=== PATIENT | male | born 1965 | race Caucasian/White ===

== ENCOUNTER 2021-09-12 12:13 | Emergency (ER) | payer MEDICAID, OTHER ==
[2021-09-12 12:44] LABS: BASOPHILS # (AUTO) 0.1 10^3/uL (0.0-0.1); BASOPHILS % (AUTO) 1.1 %; EOSINOPHILS # (AUTO) 0.2 10^3/uL (0.0-0.7); EOSINOPHILS % (AUTO) 2.7 %; HCT - HEMATOCRIT 46.2 % (42.0-52.0); HGB - HEMOGLOBIN 15.4 g/dL (14.0-18.0); LYMPHOCYTES # (AUTO) 1.9 10^3/uL (1.5-3.5); LYMPHOCYTES % (AUTO) 24.3 %; MEAN CORPUSCULAR HEMOGLOBIN 31.8 pg (27.0-31.0); MEAN CORPUSCULAR HGB CONC 33.3 g/dL (32.0-36.0); MEAN CORPUSCULAR VOLUME 95.5 fL (80.0-94.0); MEAN PLATELET VOLUME 9.6 fL (7.4-11.4); MONOCYTES # (AUTO) 0.6 10^3/uL (0.0-1.0); MONOCYTES % (AUTO) 7.7 %; NEUTROPHILS % (AUTO) 63.7 %; PLT - PLATELET COUNT 225 10^3/uL (130-450); RED BLOOD COUNT 4.84 10^6/uL (4.70-6.10); RED CELL DISTRIBUTION WIDTH 12.9 % (12.0-15.0); WHITE BLOOD COUNT 7.9 x10^3/uL (4.8-10.8)
--- NOTE | 2021-09-12 12:50 | ED Physician Documentation ---
History of Present Illness - Stated complaint Stated Complaint: HIGH BLOOD PRESSURE - Chief complaint Chief Complaint: General - Additonal information Additional information: 55-year-old male presents emergency department for evaluation of elevated blood pressure. He states that over the last year he has casually checked his blood pressure when he would be in pharmacies or [employer] and the machine always told him that he had hypertension. As he his got his booster vaccine for Covid recently his girlfriend saw that his blood pressure was greater than 180 and advised him to get into the ER to get checked. The patient denies that he is having any chest pain, shortness of air or leg swelling. No nausea, vomiting or headaches. His typical blood pressure readings are in the 160s to 180s. Patient expresses [place]. Patient is a moderate tobacco user 4 to 7 cigarettes a day. Social drinker on the weekends only. Takes no other prescribed medications. Review of Systems Constitutional: reports: Reviewed and negative Ears: reports: Reviewed and negative Nose: reports: Reviewed and negative Throat: reports: Reviewed and negative Cardiac: reports: Reviewed and negative Respiratory: reports: Reviewed and negative GI: reports: Reviewed and negative : reports: Reviewed and negative Skin: reports: Reviewed and negative Musculoskeletal: reports: Reviewed and negative Neurologic: reports: Reviewed and negative PD PAST MEDICAL HISTORY - Present Medications Home Medications: Ambulatory Orders Medication Instructions Recorded Confirmed Lisinopril [Zestril] 10 mg PO DAILY #30 tablet 09/12/21 - Allergies Allergies/Adverse Reactions: Allergies Allergy/AdvReac Type Severity Reaction Status Date / Time No Known Drug Allergies Allergy Verified 09/12/21 12:28 - Social History Does the pt smoke?: Yes Smoking Status: Current every day smoker PD ED PE NORMAL - General General: Alert and oriented X 3, No acute distress, Well developed/nourished - HEENT HEENT: PERRL, Moist mucous membranes - Neck Neck: Supple, no meningeal sign, No adenopathy - Cardiac Cardiac: RRR, No murmur, Strong equal pulses - Respiratory Respiratory: No respiratory distress, Clear bilaterally - Abdomen Abdomen: Normal bowel sounds, Soft, Non tender - Back Back: No CVA TTP, No spinal TTP - Derm Derm: Normal color, Warm and dry, No rash - Extremities Extremities: No deformity, No tenderness to palpate, Normal ROM s pain - Neuro Neuro: Alert and oriented X 3, claims support specialist 2-12 intact Eye Opening: Spontaneous Motor: Obeys Commands Verbal: Oriented GCS Score: 15 Results - Vitals Vitals: Vital Signs - 24 hr 09/12/21 12:24 Temperature 36.4 C L Heart Rate 83 Respiratory 18 Rate Blood Pressure 185/110 H O2 Saturation 98 Oxygen O2 Source Room air - EKG (time done) 1239 Rate: Rate (enter#) (79) Rhythm: NSR Slinger: Anterior hemiblock Intervals: Normal NH, RBBB. No: Prolonged QT QRS: Poor R wave progression Ischemia: Non specific changes Compare to prior EKG: Old EKG unavailable Computer interpretation: Agree with computer - Labs Labs: Laboratory Tests 09/12/21 09/12/21 09/12/21 12:39 12:39 12:39 WBC 7.9 RBC 4.84 Hgb 15.4 Hct 46.2 MCV 95.5 H MCH 31.8 H MCHC 33.3 RDW 12.9 Plt Count 225 MPV 9.6 Neut # (Auto) 5.0 Lymph # (Auto) 1.9 [place] # (Auto) 0.6 Eos # (Auto) 0.2 Baso # (Auto) 0.1 Absolute Nucleated RBC 0.00 Nucleated RBC % 0.0 Sodium 135 Potassium 4.0 Chloride 101 Carbon Dioxide 27 Anion Gap 7.0 BUN 18 Creatinine 1.1 Estimated GFR (MDRD) 69 L Glucose 102 H Calcium 8.9 Total Bilirubin 0.5 AST 17 ALT 19 Alkaline Phosphatase 72 Troponin I High Sens 4.1 Total Protein 6.6 L Albumin 3.6 Globulin 3.0 Albumin/Globulin Ratio 1.2 Lipase 80 H - Rads (name of study) CXR Radiology: Final report received (Chest without acute cardiopulmonary abnormalities.) PD MEDICAL DECISION MAKING - ED course Complexity details: reviewed results, re-evaluated patient, considered differential, d/w patient ED course: 55-year-old male presents emergency department for evaluation and hopeful ma nagement of his elevated blood pressure. Over the last year he has noticed that his blood pressures are typically in the 1 60-1 80 range when checked at local pharmacies or walk-in clinics. He has never been treated for hypertension. He does not have any headache, chest pain or shortness of air. No leg swelling. His blood pressure was checked today at the [facility] where he was getting a booster shot and he was noted to have a systolic greater than 180 and his girlfriend requested that he come to the ER for evaluation. Patient's cardiopulmonary exam is unremarkable. Screening EKG is nonischemic though he does have a right bundle branch block. No previous for comparison. Screening labs show no acute worrisome abnormalities. Renal function is preserved. Negative troponin. Patient will be started on lisinopril. 10 mg daily. He is advised to establish with a primary care doctor in order to have his blood pressure managed in the long-term. Is also advised tobacco cessation. Emergent return precautions otherwise discussed. Departure - Departure Disposition: Home, Self Care Clinical Impression: Hypertension Qualifiers: Hypertension type: primary hypertension Qualified Code(s): I10 - Essential (primary) hypertension Condition: Stable Record reviewed to determine appropriate education?: Yes Instructions: High Blood Pressure, Inhibitors ALISHA Prescriptions: Lisinopril [Zestril] 10 mg PO DAILY #30 tablet Comments: Donnie berg are seen today in the emergency department for elevated blood pressure. Your screening labs and EKG did not show any worrisome findings. But it is important to start treatment for your high blood pressure. Fill the prescription for the lisinopril and begin taking once daily as directed. Your prescription was sent to [facility] in [place]. It is important that you establish with a primary care doctor to have longer-term evaluation and management of your blood pressure completed. Tobacco cessation will be an important part of achieving blood pressure goals. If at any point you develop sudden severe headache, have uncontrolled vomiting, develop sudden chest pain, chest pressure or have shortness of air then return immediately to the ER for second evaluation.
--- NOTE | 2021-09-12 13:12 | XRAY Report ---
PROCEDURE: Chest 1 View X-Ray INDICATIONS: Chest Pain TECHNIQUE: One view of the chest was acquired. COMPARISON: None FINDINGS: Surgical changes and devices: None. Lungs and pleura: No pleural effusions or pneumothorax. Lungs are clear. Mediastinum: Mediastinal contours appear normal. Heart size is normal. Bones and chest wall: No suspicious bony lesions. Overlying soft tissues appear unremarkable. IMPRESSION: CHEST WITHOUT ACUTE CARDIOPULMONARY ABNORMALITIES. Reviewed by: Tomer Arango MD on 09/12/2021 1:10 PM PST Approved by: Tomer Arango MD on 09/12/2021 1:10 PM [facility] Station ID: [id number]
[2021-09-12 13:13] LABS: ALBUMIN 3.6 g/dL (3.2-5.5); ALBUMIN/GLOBULIN RATIO 1.2 (1.0-2.2); BILIRUBIN,TOTAL 0.5 mg/dL (0.2-1.0); CALCIUM 8.9 mg/dL (8.5-10.3); CREATININE 1.1 mg/dL (0.6-1.2); TOTAL PROTEIN 6.6 g/dL (6.7-8.2)
[2021-09-12 14:12] VITALS: BP 161/105
== END 2021-09-12 14:15 | disposition home or self-care (01) ==
LOC: ED 12:13
DX: I10 Essential (primary) hypertension (principal); F17.200 Nicotine dependence, unspecified, uncomplicated
CPT/HCPCS: 36415; 80053; 83690; 84484; 85025; 93005; 99283; 99284

== ENCOUNTER 2021-09-30 09:52 | Emergency (ER) | payer MEDICAID ==
--- NOTE | 2021-09-30 10:06 | ED Physician Documentation ---
PD HPI URI - Stated complaint Stated Complaint: THROAT PX/COUGH - Chief complaint Chief Complaint: Heent - History obtained from History obtained from: Patient - History of Present Illness Timing - onset: Last night Timing duration: Hours (12) Timing details: Gradual onset, Still present Associated symptoms: Sore throat, Swollen nodes, Other (feeling painful swallowing with sensation of swelling in right throat.). No: Fever Contributing factors: Other (onset of discomfort in throat after putting in some insulation and drywall last evening. HE says the insulation sheets had been stored awhile, so had mouse scat on it.). No: Sick contact, Unimmunized Improves by: No: Rest Worsened by: Other (swallowing) Similar symptoms before: Has not had sx before Recently seen: Emergency Dept (a month ago for high blood pressure and RX LIsinopril for the past month.) Review of Systems Constitutional: reports: Fever, Chills, Myalgias Nose: denies: Rhinorrhea / runny nose, Congestion Throat: reports: Sore throat, Swollen tonsils (right side) Cardiac: denies: Chest pain / pressure Respiratory: denies: Dyspnea, Cough GI: denies: Abdominal Pain, Nausea, Vomiting Skin: denies: Rash, Lesions PD PAST MEDICAL HISTORY - Past Medical History Cardiovascular: Hypertension Respiratory: None Neuro: None Endocrine/Autoimmune: None - Present Medications Home Medications: Ambulatory Orders Medication Instructions Recorded Confirmed Lisinopril [Zestril] 10 mg PO DAILY #30 tablet 09/12/21 HYDROcod/ACETAM 5/325 [[place] 5/325] 1 ea PO Q6H PRN #18 tablet 09/30/21 Losartan [Cozaar] 50 mg PO DAILY 30 Days #30 tablet 09/30/21 cephALEXin [Keflex] 500 mg PO QID 5 Days #20 cap 09/30/21 dexAMETHasone [Decadron] 8 mg PO DAILY 5 Days #10 tablet 09/30/21 - Allergies Allergies/Adverse Reactions: Allergies Allergy/AdvReac Type Severity Reaction Status Date / Time No Known Drug Allergies Allergy Verified 09/30/21 10:02 - Living Situation Living Situation: reports: Alone Living Arrangement: reports: At home - Social History Does the pt smoke?: Yes Smoking Status: Current every day smoker Does the pt have substance abuse?: No PD ED PE NORMAL - Vitals Vital signs reviewed: Yes - General General: Well developed/nourished, Other (appears in pain with swallowing. SLIGht distortion/hoarsenss of voice with speaking. ) - HEENT HEENT: Moist mucous membranes. No: Pharynx benign (tonsilllar redness some both sides. Right tonsil with more swelling, redness and with peritonsillar swelling causing some deviation right tonsil toward midline. ) - Neck Neck: Supple, no meningeal sign, Other (right adenopathy. ) - Cardiac Cardiac: RRR, No murmur - Respiratory Respiratory: Clear bilaterally - Back Back: No CVA TTP - Derm Derm: Normal color, Warm and dry, No rash - Neuro Neuro: Alert and oriented X 3, No motor deficit, No sensory deficit. No: Normal speech (mild hoarseness. ) Results - Vitals Vitals: Vital Signs - 24 hr 09/30/21 09/30/21 09/30/21 09:59 10:38 13:30 Temperature 36.2 C L Heart Rate 102 H 99 92 Respiratory 22 18 16 Rate Blood Pressure 197/96 H 156/119 H O2 Saturation 99 95 Oxygen O2 Source Room air - Labs Labs: Laboratory Tests 09/30/21 09/30/21 09/30/21 10:33 10:33 10:33 WBC 19.1 H RBC 4.68 L Hgb 14.8 Hct 44.2 MCV 94.4 H MCH 31.6 H MCHC 33.5 RDW 12.9 Plt Count 221 MPV 9.6 Neut # (Auto) 17.0 H Lymph # (Auto) 0.7 L [place] # (Auto) 1.2 H Eos # (Auto) 0.0 Baso # (Auto) 0.1 Absolute Nucleated RBC 0.00 Nucleated RBC % 0.0 Sodium 132 L Potassium 3.8 Chloride 98 L Carbon Dioxide 25 Anion Gap 9.0 BUN 12 Creatinine 1.1 Estimated GFR (MDRD) 69 L Glucose 127 H Calcium 8.9 Total Bilirubin 1.0 AST 18 ALT 16 Alkaline Phosphatase 66 Total Protein 6.9 Albumin 3.9 Globulin 3.0 Albumin/Globulin Ratio 1.3 Lipase 31 Group A Strep Rapid Negative - Rads (name of study) neck CT Radiology: Prelim report reviewed, Discussed with rads (right peritonsillar edema and 1.2 cm abscess. thickened mucosal tissue lower throat concerning for tumor versus acute swelling. SUggests ENT FOllow up. ), See rad report PD MEDICAL DECISION MAKING - ED course Complexity details: re-evaluated patient (more comfortable with talking and swallowing. Oral exam appears less swelling already.), considered differential (does have abscess, but also brisk amount of edema with it, so consider some effect of new lisinopril and I opt to change that.), d/w patient, d/w community resource consultant (Dr. Junior, operations vice president for [facility] in [place], who will see patient in follow up this week if still with symptoms, or early next week if well improving. ) Departure - Departure Disposition: Home, Self Care Clinical Impression: Peritonsillar abscess Condition: Stable Record reviewed to determine appropriate education?: Yes Instructions: ED Peritonsillar Abscess Follow-Up: [facility] [place] [Provider Group] Prescriptions: Losartan [Cozaar] 50 mg PO DAILY 30 Days #30 tablet dexAMETHasone [Decadron] 8 mg PO DAILY 5 Days #10 tablet cephALEXin [Keflex] 500 mg PO QID 5 Days #20 cap HYDROcod/ACETAM 5/325 [[place] 5/325] 1 ea PO Q6H PRN #18 tablet PRN Reason: Pain Comments: You do have infection and a small abscess within the tissue in the back of the throat and around the tonsils. We will treat this with Decadron steroid for inflammation and swelling as well as cephalexin antibiotic. Both of these as prescribed for the next 5 days. The small fluid collection seen on CT scan is in a lower area harder to access and is small enough that it should not need draining necessarily at this point. I talked with an longwall shearer operator, Dr. Junior from [facility] in [place], and he felt treating with oral medications at this time would be adequate. Return to the ER if you feel increasing amount of swelling, pain or difficulty swallowing again despite the medications. They do want a follow-up and see you in the office later this week. Call the office number today and let them know you are seen in the ER and we talked with Dr. Junior for close follow-up of the peritonsillar abscess. You did have a unusually quick amount of swelling for this and so I wonder if there is some concurrent affect of tissue swelling that can associate with the blood pressure medicine you have just started. In conjunction with an infection, sometimes this tissue will swell more than it should have as a side effect of that medicine. As such I would suggest stopping your lisinopril blood pressure medicine and changing to one called losartan. Tylenol every 4-6 hours if needed for pain or hydrocodone if needed for worse pain. Liquids and soft food only for the next few days to have less irritation of the throat when swallowing. I transmitted your prescriptions to [facility] in [place]. I am prescribing a short course of narcotic pain medication for you. These are potentially dangerous and addictive medications that should be used carefully. These medications may constipate you. Take an mzbm-fod-wzeocrg stool softener such as docusate twice daily with plenty of water while taking these medications. If you go 24 hours without a bowel movement, take jngt-fax-[id number] MiraLAX, per package instructions. Do not drink or drive while taking these medications. If you received narcotic or sedating medications while in the emergency department do not drive for 24 hours. Store this medication in a safe, secure place and out of reach of children. It is a violation of federal law to give or sell this medication to another person or to use in a manner other than prescribed. The ED will not refill narcotic prescriptions, including prescriptions lost or stolen. You can dispose of unwanted medications at the [facility]'s office or at several pharmacies such as [facility]. Discharge Date/Time: 09/30/21 13:40
[2021-09-30] MEDS ORDERED: KETOROLAC 30 MG/ML VIAL IVP STA (10:16)
[2021-09-30] MEDS ORDERED: HYDROmorphone 0.5 MG/0.5 ML SYRINGE IVP STA (10:16)
[2021-09-30] MEDS ORDERED: SODIUM CHLORIDE INHALATION 3 ML NEB INH STA (10:16)
[2021-09-30] MEDS ORDERED: RACEPINEPHRINE 2.25% NEB INH STA (10:16)
[2021-09-30] MEDS ORDERED: DEXAMETHASONE 10 MG/ML VIAL IVP STA ×2 (10:16→12:20)
[2021-09-30] MEDS ORDERED: diphenhydrAMINE INJ 50 MG/ML VIAL IVP STA (10:17)
[2021-09-30] MEDS ORDERED: IOVERSOL 320 100 ML VIAL IVP ONE ×2 (10:32→11:40)
[2021-09-30 10:47] LABS: BASOPHILS # (AUTO) 0.1 10^3/uL (0.0-0.1); BASOPHILS % (AUTO) 0.4 %; EOSINOPHILS % (AUTO) 0.2 %; HCT - HEMATOCRIT 44.2 % (42.0-52.0); HGB - HEMOGLOBIN 14.8 g/dL (14.0-18.0); LYMPHOCYTES # (AUTO) 0.7 10^3/uL (1.5-3.5); LYMPHOCYTES % (AUTO) 3.5 %; MEAN CORPUSCULAR HEMOGLOBIN 31.6 pg (27.0-31.0); MEAN CORPUSCULAR HGB CONC 33.5 g/dL (32.0-36.0); MEAN CORPUSCULAR VOLUME 94.4 fL (80.0-94.0); MEAN PLATELET VOLUME 9.6 fL (7.4-11.4); MONOCYTES # (AUTO) 1.2 10^3/uL (0.0-1.0); MONOCYTES % (AUTO) 6.3 %; NEUTROPHILS % (AUTO) 89.1 %; PLT - PLATELET COUNT 221 10^3/uL (130-450); RED BLOOD COUNT 4.68 10^6/uL (4.70-6.10); RED CELL DISTRIBUTION WIDTH 12.9 % (12.0-15.0); WHITE BLOOD COUNT 19.1 x10^3/uL (4.8-10.8)
[2021-09-30 11:00] LABS: RAPID STREP SCREEN Negative (Negative)
[2021-09-30 11:04] LABS: ALBUMIN 3.9 g/dL (3.2-5.5); ALBUMIN/GLOBULIN RATIO 1.3 (1.0-2.2); CALCIUM 8.9 mg/dL (8.5-10.3); CREATININE 1.1 mg/dL (0.6-1.2); POTASSIUM 3.8 mmol/L (3.5-5.0); TOTAL PROTEIN 6.9 g/dL (6.7-8.2)
[2021-09-30] MEDS ORDERED: cefTRIAXone 1 GM VIAL IVP STA (11:27)
[2021-09-30] MEDS ORDERED: HYDROmorphone 1 MG/ML CARPUJECT IVP STA (12:20)
--- NOTE | 2021-09-30 12:22 | CT Report ---
PROCEDURE: SOFT TISSUE NECK W INDICATIONS: Acute throat pain and swelling CONTRAST: 100 mL Optiray 320 TECHNIQUE: After the administration of intravenous contrast, 3.0 mm axial sections acquired from the sella to th e aortic arch. Additional oblique axial 3.0 mm sections acquired through the pharynx. 3 mm thick co rissa reformats were generated. For radiation dose reduction, the following was used: automated exp osure control, adjustment of mA and/or kV according to patient size. COMPARISON: None. FINDINGS: There is a enlargement of the right palatine with an edematous and thickened appearance of the adjace nt right pharyngeal and hypopharyngeal wall soft tissues including the lateral glossoepiglottic fold with effacement of the epiglottic vallecula and thickened appearance of the right anterolateral preep iglottic and pericolonic soft tissues. This extends inferiorly to involve the quadrangular membrane a nd soft tissue surrounding the right vocal fold. The right piriform recess is mildly effaced. Within the right palatine tonsil there is a 1.2 cm low-density focus consistent with a tonsillar absc ess. There is also a 3-4 mm tonsillolith. No retropharyngeal effusion or abscess identified. Extensive right cervical lymphadenopathy. No definite adenopathy in the left neck. No acute vascular or osseous abnormality. IMPRESSION: Low right palatine tonsillar abscess measuring 1.2 cm. Adjacent soft tissue thickening could represent inflammatory change although is worrisome for underly ing mucosal neoplasm such as squamous cell carcinoma. Direct visualization is recommended. Lymphadenopathy in the right neck could be reactive in the setting of infection although again is con cerning for neoplasm. Reviewed by: Wiil Keyes MD on 09/30/2021 12:21 PM PST Approved by: Wili Keyes MD on 09/30/2021 12:21 PM PST Station ID: [id number]
[2021-09-30 13:34] VITALS: BP 156/119
== END 2021-09-30 13:40 | disposition home or self-care (01) ==
LOC: ED 09:52
DX: J36 Peritonsillar abscess (principal); I10 Essential (primary) hypertension; F17.200 Nicotine dependence, unspecified, uncomplicated
CPT/HCPCS: 36415; 70491; 80053; 83690; 85025; 87070; 87430; 94640; 96374; 96375; 96376; 99284; 99285; J1170; J1200; Q9967

== ENCOUNTER 2021-10-03 15:33 | Emergency (ER) | payer MEDICAID ==
[2021-10-03 15:48] VITALS: BP 199/111
--- NOTE | 2021-10-03 16:02 | ED Physician Documentation ---
History of Present Illness - Stated complaint Stated Complaint: REACTION TO MED,NEED RX - Chief complaint Chief Complaint: Heent - History obtained from History obtained from: Patient - History of Present Illness Pain level max: 5 Pain level now: 4 - Additonal information Additional information: Patient is a 55-year-old male who was seen here recently for a tonsillar abscess. He was referred for follow-up with ENT. He states he has been calling the ENT office but has been unable to make an appointment. He states that he is now running out of the medication and is requesting a refill on antibiotics and pain medication. No fevers. No chills. He states his symptoms are continuing to improve. Eating and drinking well. Review of Systems Constitutional: denies: Fever, Chills GI: denies: Vomiting, Diarrhea Skin: denies: Rash Musculoskeletal: denies: Neck pain, Back pain Neurologic: denies: Headache PD PAST MEDICAL HISTORY - Past Medical History Past Medical History: Yes Cardiovascular: Hypertension Respiratory: None Neuro: None Endocrine/Autoimmune: None GI: None : None HEENT: Chronic vision loss Psych: None Musculoskeletal: None Derm: None - Past Surgical History Past Surgical History: No Ortho: Arthroscopic surgery - Present Medications Home Medications: Ambulatory Orders Medication Instructions Recorded Confirmed HYDROcod/ACETAM 5/325 [[place] 5/325] 1 ea PO Q6H PRN #18 tablet 09/30/21 10/03/21 Losartan [Cozaar] 50 mg PO DAILY 30 Days #30 tablet 09/30/21 10/03/21 cephALEXin [Keflex] 500 mg PO QID 5 Days #20 cap 09/30/21 10/03/21 dexAMETHasone [Decadron] 8 mg PO DAILY 5 Days #10 tablet 09/30/21 10/03/21 HYDROcod/ACETAM 5/325 [[place] 5/325] 1 - 2 ea PO Q6H PRN #14 tablet 10/03/21 clindamycin HCL [Cleocin HCl] 300 mg PO Q6H #40 cap 10/03/21 predniSONE [Deltasone] 10 mg PO [id number] #42 tab 10/03/21 - Allergies Allergies/Adverse Reactions: Allergies Allergy/AdvReac Type Severity Reaction Status Date / Time No Known Drug Allergies Allergy Verified 10/03/21 15:48 - Social History Does the pt smoke?: Yes Smoking Status: Current every day smoker Does the pt drink ETOH?: Yes Does the pt have substance abuse?: No - Immunizations Immunizations are current?: Yes - POLST Patient has POLST: No PD ED PE NORMAL - Vitals Vital signs reviewed: Yes - General General: Alert and oriented X 3, No acute distress, Well developed/nourished - HEENT HEENT: PERRL, Moist mucous membranes, Other (Normal phonation. No trismus. Mild swelling to the right throat. Uvula midline.) - Neck Neck: Supple, no meningeal sign - Cardiac Cardiac: RRR, Strong equal pulses - Respiratory Respiratory: No respiratory distress, Clear bilaterally - Derm Derm: Warm and dry - Neuro Neuro: Alert and oriented X 3 - Psych Psych: Normal mood, Normal affect Results - Vitals Vitals: Vital Signs - 24 hr 10/03/21 15:40 Temperature 36.2 C L Heart Rate 89 Respiratory 16 Rate Blood Pressure 199/111 H O2 Saturation 98 Oxygen O2 Source Room air PD MEDICAL DECISION MAKING - ED course Complexity details: reviewed old records, re-evaluated patient, considered differential, d/w patient ED course: I contacted the [facility]. I was able to obtain an appointment for him on Wednesday at 4:00. The patient will see Dr. Belcher in [place]. We will place on continued antibiotics and pain medication for home. No indication for reimaging, labs or further intervention at this time. Patient counseled regarding signs and symptoms for which I believe and urgent re-evaluation would be necessary. Patient with good understanding of and agreement to plan and is comfortable going home at this time This document was made in part using voice recognition software. While efforts are made to proofread this document, sound alike and grammatical errors may occur. Departure - Departure Disposition: Home, Self Care Clinical Impression: Tonsillar abscess Condition: Good Instructions: ED Peritonsillar Infec Abx No I andD Follow-Up: Ernesto Belcher MD [Physician No Access] - 10/06/21 4:00 pm Prescriptions: clindamycin HCL [Cleocin HCl] 300 mg PO Q6H #40 cap predniSONE [Deltasone] 10 mg PO [id number] #42 tab HYDROcod/ACETAM 5/325 [[place] 5/325] 1 - 2 ea PO Q6H PRN #14 tablet PRN Reason: Pain Comments: These follow-up with Dr. Belcher Wednesday at 4 PM in the [place] office. You should plan on arriving at least 15 minutes early as you will likely need to fill out paperwork. Your prescriptions today were sent to [facility] in [place]. I am prescribing a short course of narcotic pain medication for you. These are potentially dangerous and addictive medications that should be used carefully. These medications may constipate you. Take an daid-tqc-hvgbdig stool softener (docusate) twice daily with plenty of water while taking these medications. If you go 24 hours without a bowel movement, take ayef-rib-yztgxpb miralax, per package instructions. Do not drink or drive while taking these medications. If you received narcotic or sedating medications while in the emergency department, do not drive for 24 hours. Store this medication in a safe, secure place and out of reach of children. It is a violation of federal law to give or sell this medication to another person or to use in a manner other than prescribed. The ED will not refill narcotic prescriptions, including prescriptions lost or stolen. To dispose of unwanted medications: 1. [facility] at [address] in [place] has a medication drop box. They accept prescription medications (in pill form) Wednesday through Wednesday 9:00 a.m. to 5:00 p.m. 2. The [facility] accepts prescription medications (in pill form only) for disposal year round. Call for more information. 3. Contact the [facility] for the next [facility] sponsored prescription drug collection event. , [phone], or [phone]; Discharge Date/Time: 10/03/21 16:07
== END 2021-10-03 16:07 | disposition home or self-care (01) ==
LOC: ED 15:33
DX: Z76.0 Encounter for issue of repeat prescription (principal); J36 Peritonsillar abscess; I10 Essential (primary) hypertension; F17.200 Nicotine dependence, unspecified, uncomplicated
CPT/HCPCS: 99282; 99283